=== PATIENT | male | born 1970 ===

== ENCOUNTER 2021-06-26 08:47 | Emergency (ER) | payer BC ==
[~2021-06-26] VITALS: Ht 177.8 cm; Wt 85.9 kg
[2021-06-26 09:19] VITALS: TEMP 97.6
[2021-06-26] MEDS ORDERED: ANTIVERT 25MG25 MG PO (10:46)
[2021-06-26] MEDS ORDERED: PEPCID 20MG TAB20 MG PO (10:46)
[2021-06-26] MEDS ORDERED: ZOFRAN ODT4 MG PO (10:46)
[2021-06-26 11:01] VITALS: BP 109/74; PULSE 59
== END 2021-06-26 11:01 | disposition home or self-care (01) ==
LOC: COL.ER 08:47
DX: H55.09 Other forms of nystagmus (principal); J45.909 Unspecified asthma, uncomplicated